=== PATIENT | male | born 1960 | race Caucasian/White ===

== ENCOUNTER 2018-05-05 08:07 | Emergency (ER) | payer OTHER ==
[~2018-05-05] VITALS: Ht 167.6 cm; Wt 102.5 kg
[2018-05-05 08:10] VITALS: BP 164/91
--- NOTE | 2018-05-05 08:17 | ED UPPER/LOWER EXTREMITY COMPL ---
History of Present Illness General Chief Complaint: Upper Extremity Problem Stated Complaint: LT ARM INJURY PRIOR TO ARRIVAL (WORK RELATED) Source: patient Exam Limitations: no limitations Vital Signs & Intake/Output Vital Signs & Intake/Output Vital Signs Date Time Temp Pulse Resp B/P B/P Pulse O2 O2 Flow FiO2 Mean Ox Delivery Rate 05/05 0810 98.2 87 18 164/91 98 Room Air Room Air Allergies Coded Allergies: No Known Allergies (05/05/18) Triage Note: PT TO ED WITH C/O LEFT UPPER ARM AND LEFT SHOULDER PAIN S/P "I WAS AT WORK AND WAS SUPPORTING SOMETHING AND FELT A PAIN TO MY LEFT ARM". Triage Nurses Notes Reviewed? yes Onset: Abrupt Duration: constant Timing: single episode today Severity: severe Severity Numbers: 7 HPI: Patient is a 57-year-old male who presents emergency room on work today he was holding in his left hand approximately 8 pound object while hammering the object with his right hand where he had acute onset of left mid humeral muscular biceps pain. Patient states that elbow movements make worse. Denies any wrist or shoulder pain Patient is right arm dominant No medications given prior to arrival (J Carlos Rogers) Reconcile Medications Aspirin (Ecotrin*) 81 MG TABLET.DR 1 TAB PO DAILY HEART HEALTH (Reported) Liraglutide (Victoza 3-Henry) 0.6 MG/0.1 ML (18 MG/3 ML) PEN.INJCTR 18 MG SC DAILY DIABETES (Reported) Lisinopril 5 MG TABLET 1 TAB PO DAILY HEART (Reported) Metformin HCl 1,000 MG TABLET 1 TAB PO BID DIABETES (Reported) (Diogo ROMEO,Jacob Jo) Past History Travel History Traveled to [place] past 21 day No Medical History Any Pertinent Medical History? 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 No (J Carlos Rogers) Review of Systems Review of Systems Constitutional: Reports: no symptoms. EENTM: Reports: no symptoms. Respiratory: Reports: no symptoms. Cardiovascular: Reports: no symptoms. Gastrointestinal/Abdominal: Reports: no symptoms. Genitourinary: Reports: no symptoms. Musculoskeletal: Reports: see HPI, muscle pain, muscle stiffness. Skin: Reports: no symptoms. Neurological/Psychological: Reports: no symptoms. Hematologic/Endocrine: Reports: no symptoms. Immunological: Reports: no symptoms. All Other Systems: Reviewed and Negative (J Carlos Rogers) Physical Exam Physical Exam General Appearance: no apparent distress, alert, comfortable Head: atraumatic Eyes: Bilateral: normal appearance. Ears, Nose, Throat: hearing grossly normal Neck: normal inspection Cardiovascular/Respiratory: no respiratory distress Peripheral Pulses: 2+ radial (L) Neurologic/Tendon: normal sensation, normal motor functions, normal tendon functions, responds to pain, no evidence tendon injury, no pulse deficit Skin: intact, normal color, warm/dry Comments: Left shoulder normal inspection nontender full active range of motion Left elbow normal inspection noted tenderness upon the biceps muscle region HOOK Test intact no tendon deficit Decreased active range of motion with elbow flexion to 45 Left wrist normal inspection nontender Left upper extremity dermatomes intact capillary refill less than 2 seconds (J Carlos Rogers) Progress Differential Diagnosis: arterial insufficiency, compartment syndrome, contusion, dislocation, DVT, fracture, gout, septic arthritis, sprain, tendon injury Plan of Care: Orders Procedure Date/time Status Durable Medical Equipment 05/05 0826 Active Due to history of present illness and exam findings patient has suspicion of biceps muscular strain no concern at this time of complete iced tendon rupture Distal biceps tendon was intact Left upper extremity was neurovascularly intact No concerns of osseous injury No emergent warranting of x-rays Shoulder immobilizer was placed pre-and post-neurovascular was intact (J Carlos Rogers) Departure Departure Disposition: HOME OR SELF CARE Condition: Stable Clinical Impression Primary Impression: Strain of left biceps muscle Additional Instructions: As discussed begin icing the area directly 20 minutes every 2 hours, begin using the shoulder immobilizer for support until he can move the arm without pain, begin [id number] ibuprofen as directed for pain, if no better in 5 days follow-up with your established orthopedic doctor. If symptoms worsen or if YOU develop a new concerning symptoms return to emergency room Departure Forms: General Discharge Information Industrial Accident Report (J Carlos Rogers) PA/BRAILLE TEACHER Co-Sign Statement Statement: ED Attending supervision documentation- [] I saw and evaluated the patient. I have also reviewed all the pertinent lab results and diagnostic results. I agree with the findings and the plan of care as documented in the PA's/BRAILLE TEACHER's documentation. [X] I have reviewed the ED Record and agree with the PA's/BRAILLE TEACHER's documentation. [] Additions or exceptions (if any) to the PAs/BRAILLE TEACHER's note and plan are summarized below: [] (Diogo ROMEO,Jacob Jo)
[2018-05-05] MEDS ORDERED: LISINOPRIL5 M1 PO (08:38)
[2018-05-05] MEDS ORDERED: METFORMIN HCL1000 M1 PO (08:38)
[2018-05-05] MEDS ORDERED: VICTOZA 3-0.6 MG/0.1 SC (08:39)
[2018-05-05] MEDS ORDERED: ASPIRIN EC81 M1 PO (08:39)
== END 2018-05-05 08:53 ==
LOC: ERH 08:07
DX: S46.212A Strain of muscle, fascia and tendon of other parts of biceps, left arm, initial encounter (principal); X50.0XXA Overexertion from strenuous movement or load, initial encounter; Y93.89 Activity, other specified; Y92.9 Unspecified place or not applicable